=== PATIENT | female | born 1955 | race Caucasian/White ===

== ENCOUNTER → 2016-09-25 | Outpatient (CLI) | payer OTHER ==
[2016-09-25 12:19] LABS: ALBUMIN 3.6 GM/DL (3.2-5.2); ALKALINE PHOSPHATASE 77 U/L (45-117); ALT/SGPT 26 U/L (12-78); ANION GAP 10 MEQ/L (8-16); AST/SGOT 17 U/L (15-37); BILIRUBIN,TOTAL 0.4 MG/DL (0.2-1.0); BLOOD UREA NITROGEN 16 MG/DL (7-18); CALCIUM LEVEL 9.2 MG/DL (8.5-10.1); CARBON DIOXIDE LEVEL 28 MEQ/L (21-32); CHLORIDE LEVEL 104 MEQ/L (98-107); CHOLESTEROL LEVEL 193 MG/DL (<200); GLOMERULAR FILTRATION RATE > 60.0 (>51); GLUCOSE, FASTING 88 MG/DL (70-105); MAGNESIUM LEVEL 1.8 MG/DL (1.8-2.4); POTASSIUM SERUM 3.4 MEQ/L (3.5-5.1); SODIUM LEVEL 142 MEQ/L (136-145); TOTAL PROTEIN 6.6 GM/DL (6.4-8.2); TRIGLYCERIDES LEVEL 148 MG/DL (<150)
[2016-09-25 13:06] LABS: BASO # 0.1 K/mm3 (0.0-0.2); BASO % 1.4 % (0.0-1.0); EOS # 0.1 K/mm3 (0.0-0.50); EOS % 2.4 % (0.0-3.0); LARGE UNSTAINED CELL # 0.1 K/mm3 (0.0-0.4); LARGE UNSTAINED CELL % 2.2 % (0.0-4.0); LYMPH # 1.9 K/mm3 (1.5-4.5); MEAN CORPUSCULAR HEMOGLOBIN 26.9 pg (27.0-33.0); MEAN CORPUSCULAR HGB CONC 32.5 g/dl (32.0-36.5); MEAN CORPUSCULAR VOLUME 82.9 fl (80.0-96.0); MONO # 0.2 K/mm3 (0.0-0.8); MONO % 4.1 % (0.0-5.0); NEUTROPHILS # 3.2 K/mm3 (1.8-7.7); NEUTROPHILS % 57.9 % (36.0-66.0); PLATELET COUNT, AUTOMATED 236 k/mm3 (150-450); RED CELL DISTRIBUTION WIDTH 14.9 % (11.5-14.5); WHITE BLOOD COUNT 5.6 K/mm3 (4.0-10.0)
== END ==
LOC: M WUC 09:17
PROVIDERS: ATTEND Family Medicine
DX: I10 Essential (primary) hypertension (principal)

== ENCOUNTER → 2017-03-28 | Outpatient (CLI) | payer OTHER ==
--- NOTE | 2017-03-28 10:08 | REPMRS ---
Patient History The patient states she has not had a clinical breast exam in over a year. Patient has history of cancer in the right breast at age 57, had previous chest radiation therapy at age 57, and had previous chemotherapy at age 57. No known family history of cancer. Lumpectomy of the right breast, September 2012. Taking tamoxifen for 4 years. Digital Woman Screen Mammo: March 28, 2017 - Exam #: [id number] Bilateral CC and MLO view(s) were taken. Technologist: Alissa Evans, Technologist Prior study comparison: March 24, 2016, bilateral digital mammo screening bilat, performed at [facility]. March 18, 2015, bilateral digital mammo screening bilat, performed at [facility]. October 15, 2014, right breast ultrasound unilateral limited, performed at [facility]. October 17, 2013, digital mammo diagnostic bilateral, performed at [facility]. FINDINGS: There are scattered fibroglandular densities. There has been no change in the appearance of the mammogram from the prior studies. There is a mild amount of residual fibroglandular tissue which is fairly symmetric. Retroareolar scarring and retraction at the periareolar right breast is unchanged from multiple priors.There is no interval development of dominant mass, architectural distortion, or clustered microcalcification suggestive of malignancy. A skin mole in the UOQ of the R breast is unchanged from priors. There are scattered, small, benign calcifications of doubtful clinical significance. Scattered lymph nodes are seen in the right axilla. ASSESSMENT: BI-RADS/ACR category 2 mammogram. Benign finding(s). Recommendation Routine screening mammogram in 1 year (for women over age 40). This mammogram was interpreted with the aid of an FDA-approved computer-aided dectection system. A. Negative x-ray reports should not delay biopsy if a dominant or clinically suspicious mass is present. B. Four to eight percent of cancers are not identified by mammography. C. Adenosis and dense breast may obscure an underlying neoplasm. Electronically Signed By: Barrett Lopez MD 03/28/17 [id number]
--- NOTE | 2017-03-30 14:55 | DEXA ---
AP SPINE L1 - L4 1.222 0.2 1.4 LT FEMUR TOTAL 1.050 0.3 1.2 RT FEMUR TOTAL 0.876 -1.0 -0.1 TOTAL BODY TOTAL OTHER DUAL FEMUR FRAX* ASSESSMENT Risk factors: Not performed. 10 year probability of fracture Major osteoporotic fracture % Hip fracture % COMMENTS: Normal bone densitometry of the spine. Normal bone densitometry of the left hip. There is low bone density of the right hip based on femoral neck T score -1.7 right. The decreased density of the spine does not represent a significant change since 10/13/2013. The decreased density of the left hip does represent a significant change since 10/13/2013. The decreased density of the right hip does represent a significant change. The density of the spine has decreased 11.3% since the initial exam on 2005. The spine density has decreased 0.3% since the most recent exam on 10/13/2013. The density of the left hip has decreased 12.5% since the initial exam on 2005. The density of the left hip has decreased 3.9% since the most recent exam on . The density of the right hip has decreased 10.9% since the initial exam on 08/28. The density of the right hip has decreased 5.1% since the most recent exam on . FOLLOW-UP: Recommendation for the next bone density exam: 2 years. TAYLOR
== END ==
LOC: M WHC 08:55
PROVIDERS: ATTEND Family Medicine
DX: Z12.31 Encounter for screening mammogram for malignant neoplasm of breast (principal); M89.9 Disorder of bone, unspecified; M94.9 Disorder of cartilage, unspecified

== ENCOUNTER → 2017-05-08 | Outpatient (CLI) | payer OTHER ==
[2017-05-08 18:09] LABS: ALBUMIN 3.6 GM/DL (3.2-5.2); ALBUMIN/GLOBULIN RATIO 0.97 (1.00-1.93); ALKALINE PHOSPHATASE 73 U/L (45-117); ALT/SGPT 19 U/L (12-78); ANION GAP 10 MEQ/L (8-16); AST/SGOT 18 U/L (15-37); BILIRUBIN,TOTAL 0.6 MG/DL (0.2-1.0); BLOOD UREA NITROGEN 11 MG/DL (7-18); CALCIUM LEVEL 9.1 MG/DL (8.5-10.1); CARBON DIOXIDE LEVEL 29 MEQ/L (21-32); CHLORIDE LEVEL 102 MEQ/L (98-107); CREATININE FOR GFR 0.62 MG/DL (0.55-1.02); GLOMERULAR FILTRATION RATE > 60.0 (>51); GLUCOSE, FASTING 61 MG/DL (70-105); SODIUM LEVEL 141 MEQ/L (136-145); TOTAL PROTEIN 7.3 GM/DL (6.4-8.2)
[2017-05-08 18:59] LABS: BASO % 0.5 % (0.0-1.0); EOS # 0.1 K/mm3 (0.0-0.50); EOS % 1.2 % (0.0-3.0); LARGE UNSTAINED CELL # 0.1 K/mm3 (0.0-0.4); LARGE UNSTAINED CELL % 1.3 % (0.0-4.0); LYMPH % 24.3 % (24.0-44.0); MEAN CORPUSCULAR HEMOGLOBIN 27.8 pg (27.0-33.0); MEAN CORPUSCULAR HGB CONC 32.1 g/dl (32.0-36.5); MEAN CORPUSCULAR VOLUME 86.6 fl (80.0-96.0); MONO # 0.5 K/mm3 (0.0-0.8); NEUTROPHILS # 5.1 K/mm3 (1.8-7.7); NEUTROPHILS % 65.6 % (36.0-66.0); PLATELET COUNT, AUTOMATED 243 k/mm3 (150-450); RED CELL DISTRIBUTION WIDTH 14.3 % (11.5-14.5); WHITE BLOOD COUNT 7.7 K/mm3 (4.0-10.0)
== END ==
LOC: M WUC 11:31
PROVIDERS: ATTEND Family Medicine
DX: R53.83 Other fatigue (principal)

== ENCOUNTER 2017-09-25 18:35 | Emergency (ER) | payer OTHER ==
[2017-09-25] MEDS: dexameTHASONE 20 MG/5 ML VIAL (J1100) IV (19:57)
[2017-09-25] MEDS: IPRATROPIUM 0.5MG/ALBUTEROL 2.5MG INH SOL UD 3ML (DUONEB)(J7620) NEB (20:14)
[2017-09-25] MEDS: KETOROLAC 30 MG/ML VIAL (J1885) IV (20:39)
== END 2017-09-25 21:36 | disposition home or self-care (01) ==
LOC: M ED 18:35
DX: J40 Bronchitis, not specified as acute or chronic (principal); M62.830 Muscle spasm of back; J45.909 Unspecified asthma, uncomplicated; I10 Essential (primary) hypertension; K21.9 Gastro-esophageal reflux disease without esophagitis; E78.5 Hyperlipidemia, unspecified; Z79.899 Other long term (current) drug therapy; Z79.82 Long term (current) use of aspirin
CPT/HCPCS: J1100

== ENCOUNTER → 2017-11-15 | Outpatient (CLI) | payer OTHER ==
[2017-11-15 13:47] LABS: CREATININE FOR GFR 0.65 MG/DL (0.55-1.30); GLOMERULAR FILTRATION RATE > 60.0 (>45)
[2017-11-15 13:47] LABS: BLOOD UREA NITROGEN 9 MG/DL (7-18)
== END ==
LOC: M WUC 10:25
DX: C50.111 Malignant neoplasm of central portion of right female breast (principal); Z17.0 Estrogen receptor positive status [ER+]
CPT/HCPCS: 82565

== ENCOUNTER → 2018-04-10 | Outpatient (CLI) | payer OTHER ==
[2018-04-10 14:40] LABS: CHOLESTEROL LEVEL 182 MG/DL (<200); CHOLESTEROL RISK RATIO 2.563 (<5); HDL CHOLESTEROL 71 MG/DL (>40); NON-HDL-C 111 MG/DL; THYROID STIMULATING HORMONE 0.665 uIU/ML (0.358-3.740); TRIGLYCERIDES LEVEL 170 MG/DL (<150)
== END ==
LOC: M WUC 12:44
DX: I10 Essential (primary) hypertension (principal)
CPT/HCPCS: 84443

== ENCOUNTER → 2018-08-06 | Outpatient (CLI) | payer OTHER | LOC: M RAD 08:04 | DX: C50.919 Malignant neoplasm of unspecified site of unspecified female breast (principal); M25.552 Pain in left hip; M25.511 Pain in right shoulder; M25.512 Pain in left shoulder | CPT/HCPCS: 78306 ==

== ENCOUNTER → 2018-09-09 | Outpatient (CLI) | payer OTHER ==
[~2018-09-09] MED LIST: ANAS1TAB2 PO; ASPI81TA85 PO; CHLO125TA; DULO1CAP3; GABA-843 PO; KETO10TAB PO; LISI10TA4; METO1TAB33; OMEP20CA3; ROSU10TA5; VITA50005 PO
[2018-09-09 12:46] LABS: BASO # 0.1 10^3/uL (0.0-0.2); BASO % 0.9 % (0.0-1.0); EOS # 0.2 10^3/uL (0.0-0.50); HEMATOCRIT 42.9 % (36.0-47.0); HEMOGLOBIN 14.1 g/dl (12.0-15.5); LYMPH # 1.9 10^3/uL (1.5-4.5); MEAN CORPUSCULAR HEMOGLOBIN 27.4 pg (27.0-33.0); MEAN CORPUSCULAR HGB CONC 32.9 g/dl (32.0-36.5); MEAN CORPUSCULAR VOLUME 83.3 fl (80.0-96.0); MONO # 0.4 10^3/uL (0.0-0.8); MONO % 7.7 % (0.0-5.0); NEUTROPHILS # 3.2 10^3/uL (1.8-7.7); NEUTROPHILS % 55.1 % (36.0-66.0); PLATELET COUNT, AUTOMATED 261 10^3/uL (150-450); RED BLOOD COUNT 5.15 10^6/uL (4.00-5.40); WHITE BLOOD COUNT 5.8 10^3/uL (4.0-10.0)
[2018-09-09 13:08] LABS: ALBUMIN 3.7 GM/DL (3.2-5.2); ALT/SGPT 22 U/L (12-78); BILIRUBIN,TOTAL 0.4 MG/DL (0.2-1.0); BLOOD UREA NITROGEN 12 MG/DL (7-18); CALCIUM LEVEL 9.4 MG/DL (8.8-10.2); CARBON DIOXIDE LEVEL 31 MEQ/L (21-32); CHLORIDE LEVEL 99 MEQ/L (98-107); CREATININE FOR GFR 0.68 MG/DL (0.55-1.30); GLOMERULAR FILTRATION RATE > 60.0 (>45); GLUCOSE, FASTING 90 MG/DL (70-100); POTASSIUM SERUM 3.6 MEQ/L (3.5-5.1); RHEUMATOID FACTOR QUANT < 10.0 IU/ML (<15.0); SODIUM LEVEL 140 MEQ/L (136-145); TOTAL PROTEIN 6.9 GM/DL (6.4-8.2)
[2018-09-09 13:23] LABS: ERYTHROCYTE SEDIMENTATION RATE 23 mm/hr (0-30)
[2018-09-12 14:54] LABS: ANTINUCLEAR ANTIBODIES DIRECT Negative (Negative); HLA-B27 Negative (.); Lyme Disease IgG/IgM Antibodie <0.91 ISR (0.00-0.90); Lyme Disease IgM Ab Quantitati <0.80 index (0.00-0.79); SJOGREN'S ANTI SS-A <0.2 AI (0.0-0.9); SJOGREN'S ANTI SS-B <0.2 AI (0.0-0.9)
== END ==
LOC: M WUC 10:40
PROVIDERS: ATTEND Family Medicine
DX: M12.9 Arthropathy, unspecified (principal)

== ENCOUNTER → 2018-09-26 | Outpatient (REF) | payer OTHER, MEDICARE | LOC: M SFHCPLAZ 15:59 | PROVIDERS: ATTEND Dermatology | DX: L85.9 Epidermal thickening, unspecified (principal) ==

== ENCOUNTER → 2018-10-09 | Outpatient (CLI) | payer MEDICARE, OTHER ==
--- NOTE | 2018-10-09 13:13 | REP ---
Lumbar spine three views: There are no comparison studies. There is mild scoliosis convex right, possibly positional. Vertebral body heights and alignment are normal. There is degenerative disc disease at every lumbar level. There is no spondylolisthesis. The pedicles and sacroiliac articulations are unremarkable. Impression: Multilevel degenerative disc disease. Mild scoliosis. Electronically Signed by Carlos Villeda MD 10/09/2018 01:06 P
--- NOTE | 2018-10-09 13:15 | REP ---
Right hand four views: There is mild joint space narrowing of the PIP and DIP articulations. Joint spaces are otherwise unremarkable. Mineralization is normal. There are no calcifications. No fracture or dislocation. Impression: DIP and PIP mild joint space narrowing. Left hand four views: There is mild PIP and DIP joint space narrowing. The joint spaces are otherwise unremarkable. Mineralization is normal. There are no calcifications. No fracture or dislocation. Impression: DIP and PIP mild joint space narrowing. Electronically Signed by Carlos Villeda MD 10/09/2018 01:07 P
--- NOTE | 2018-10-09 13:17 | REP ---
Sacroiliac joint series four views: Mineralization is normal. There is no cortical eburnation or erosion. The sacral ala and foramen are unremarkable. Impression: Negative sacroiliac joint series. Electronically Signed by Carlos Villeda MD 10/09/2018 01:08 P
[2018-10-09 13:53] LABS: C REACTIVE PROTEIN QUANTITATIV 1.49 MG/DL (0.00-0.30)
[2018-10-09 14:12] LABS: TOTAL 25(OH) VITAMIN D 48.5 NG/ML (30.0-100.0)
== END ==
LOC: M WUC 11:16
PROVIDERS: ATTEND Internal Medicine Rheumatology
DX: M51.36 Other intervertebral disc degeneration, lumbar region (principal); M41.86 Other forms of scoliosis, lumbar region; M25.50 Pain in unspecified joint; Z85.3 Personal history of malignant neoplasm of breast; Z92.3 Personal history of irradiation; Z92.21 Personal history of antineoplastic chemotherapy

== ENCOUNTER → 2018-10-09 | Outpatient (REF) | payer MEDICARE, OTHER | LOC: CANPREREF → M SFHCPLAZ 10:46 | PROVIDERS: ATTEND Internal Medicine Rheumatology | DX: M19.041 Primary osteoarthritis, right hand (principal); M19.042 Primary osteoarthritis, left hand; M41.86 Other forms of scoliosis, lumbar region; M51.36 Other intervertebral disc degeneration, lumbar region; M25.50 Pain in unspecified joint; Z53.8 Procedure and treatment not carried out for other reasons ==

== ENCOUNTER → 2019-04-21 | Outpatient (CLI) | payer OTHER ==
[~2019-04-21] MED LIST changes: -CHLO125TA; +CHLO125TA PO; -DULO1CAP3; +DULO1CAP6 PO; -METO1TAB33; +METO1TAB33 PO; -OMEP20CA3; +OMEP20CA4 PO; -ROSU10TA5; +ROSU10TA6
--- NOTE | 2019-04-21 11:57 | REPMRS ---
Patient History The patient states she had a clinical breast exam in 02/2019. Patient has history of cancer in the right breast at age 57, had previous chest radiation therapy at age 57, and had previous chemotherapy at age 57. No known family history of cancer. Lumpectomy of the right breast, September 2012. Taking tamoxifen for 6 years 1 month. 3D TOMOSYNTHESIS WAS PERFORMED. Digital Woman Screen Mammo: April 21, 2019 - Exam #: [id number] Bilateral CC and MLO view(s) were taken. Technologist: Phoebe Higuera Technologist Prior study comparison: March 28, 2017, digital woman screen mammo performed at [facility]. March 24, 2016, bilateral digital mammo screening bilat, performed at [facility]. FINDINGS: There are scattered fibroglandular densities. There is a fairly symmetric fibroglandular pattern in both breasts. There has been no interval development of masses, areas of architectural distortion or clusters of microcalcifications typical of malignancy. Assessment: BI-RADS/ACR category 2 mammogram. Benign Findings. Recommendation Routine screening mammogram of both breasts in 1 year (for women over age 40). This mammogram was interpreted with the aid of an FDA-approved computer-aided dectection system. Electronically Signed By: Carlos Royal MD 04/21/19 [id number]
--- NOTE | 2019-04-23 15:42 | DEXA ---
AP SPINE L1 - L4 1.220 0.2 1.5 LT FEMUR TOTAL 1.042 0.3 1.3 LT NECK 0.964 -0.5 0.8 RT FEMUR TOTAL 0.862 -1.2 -0.1 RT NECK 0.803 -1.7 -0.4 TOTAL BODY TOTAL OTHER COMMENTS: Normal bone densitometry of the spine. Normal bone densitometry of the left hip. There is low bone density of the right hip. The decreased density of the spine does not represent a significant change. The decreased density of the left hip does not represent a significant change. The decreased density of the right hip does not represent a significant change. The density of the spine is decreased 11.5% since the initial exam on 08/28/2005. The spine density has decreased 0.2% since the most recent exam on 03/28/2017 The density of the left hip has decreased 13.2% since the initial exam on 08/28/2005. The density of the left hip has decreased 0.8% since the most recent exam on 03/28/2017. The density of the right hip has decreased 12.3% since the initial exam on 08/28/2005. The density of the right hip has decreased 1.6% since the most recent exam on 03/28/2017. FOLLOW-UP: Recommendation for the next bone density exam: 2 years. TAYLOR
== END ==
LOC: M WHC 09:58
PROVIDERS: ATTEND Internal Medicine Hematology & Oncology
DX: Z12.31 Encounter for screening mammogram for malignant neoplasm of breast (principal); M81.0 Age-related osteoporosis without current pathological fracture; Z85.3 Personal history of malignant neoplasm of breast; Z92.21 Personal history of antineoplastic chemotherapy

== ENCOUNTER 2019-10-21 10:23 | Observation (INO) | payer OTHER ==
[~2019-10-21] VITALS: Ht 157.5 cm; Wt 88.6 kg
[~2019-10-21 10:23] MED LIST changes: +OMEP1CAP73 PO; -OMEP20CA4 PO
[2019-10-21] MEDS ORDERED: MELO15TA28 PO (10:53)
[2019-10-21] MEDS ORDERED: LOSA25TA14 PO (10:53)
--- NOTE | 2019-10-21 10:53 | REP ---
Portable chest, 10:34 a.m., single AP view with the patient semi upright: Comparison is 09/25/2017. The lung foster are clear. The cardiac size is normal. The sierra, mediastinum, and skeletal structures are unremarkable. Impression: Negative portable chest. There is no interval change. Electronically Signed by Carlos Villeda MD 10/21/2019 10:45 A
[2019-10-21 10:59] LABS: BASO % 0.3 % (0.0-1.0); EOS # 0.1 10^3/uL (0.0-0.5); EOS % 1.3 % (0.0-3.0); HEMATOCRIT 43.9 % (36.0-47.0); HEMOGLOBIN 14.4 g/dl (12.0-15.5); LYMPH % 14.9 % (24.0-44.0); MEAN CORPUSCULAR HEMOGLOBIN 27.1 pg (27.0-33.0); MEAN CORPUSCULAR HGB CONC 32.8 g/dl (32.0-36.5); MEAN CORPUSCULAR VOLUME 82.5 fl (80.0-96.0); MONO # 0.4 10^3/uL (0.0-0.8); MONO % 6.4 % (0.0-5.0); NEUTROPHILS # 4.9 10^3/uL (1.5-8.5); NEUTROPHILS % 76.8 % (36.0-66.0); PLATELET COUNT, AUTOMATED 255 10^3/uL (150-450); RED BLOOD COUNT 5.32 10^6/uL (4.00-5.40); WHITE BLOOD COUNT 6.4 10^3/uL (4.0-10.0)
[2019-10-21] MEDS ORDERED: IPRATROPIUM 0.5MG/ALBUTEROL 2.5MG INH SOL UD 3ML (DUONEB)(J7620) NEB ONE (11:00)
[2019-10-21] MEDS ORDERED: ACETAMINOPHEN TAB 650MG DOSE (2X325MG) PO ONE (11:00)
[2019-10-21 11:41] LABS: BLOOD UREA NITROGEN 7 MG/DL (7-18); CALCIUM LEVEL 9.1 MG/DL (8.8-10.2); CARBON DIOXIDE LEVEL 26 MEQ/L (21-32); CHLORIDE LEVEL 105 MEQ/L (98-107); CK-MB VALUE MASS < 1.0 NG/ML (<3.6); CPK CREATINE PHOSPHOKINASE 92 U/L (26-192); CREATININE FOR GFR 0.82 MG/DL (0.55-1.30); GLOMERULAR FILTRATION RATE > 60.0 (>45); GLUCOSE, FASTING 109 MG/DL (70-100); MB/CK RELATIVE INDEX 1.09 (< OR =4); SODIUM LEVEL 137 MEQ/L (136-145); TROPONIN I < 0.02 NG/ML (< 0.10)
[2019-10-21 11:48] LABS: INFLUENZA A AMPLIFICATION NEGATIVE (NEGATIVE); INFLUENZA B AMPLIFICATION POSITIVE (NEGATIVE)
[2019-10-21] MEDS ORDERED: OSELTAMIVIR PHOSPHATE 75 MG CAP (TAMIFLU) PO ONE (12:00)
[2019-10-21] MEDS ORDERED: IBUPROFEN 600 MG TAB PO ONE (12:30)
[2019-10-21 13:20] VITALS: O2SAT 88
[2019-10-21] MEDS ORDERED: ANAS1TAB2 PO (14:24)
[2019-10-21] MEDS ORDERED: VITA50005 PO (14:24)
[2019-10-21] MEDS ORDERED: [UNRECOGNIZED DRUG - CODE] SL (14:26)
--- NOTE | 2019-10-21 15:23 | HPEPDOC ---
[facility] Medical History & Physical Date of Admission Oct 21, 2019 Date of Service: Oct 21, 2019 Attending Physician: ALBERTINA WANG MD History and Physical CHIEF COMPLAINT: Cough, myalgia/arthralgia HISTORY OF PRESENT ILLNESS: 64-year-old female with past medical history of breast cancer, status post chemoradiation, hypertension and hyperlipidemia presents from home with cough and malaise for the past 1 day. Patient was feeling well up until yesterday when she started experiencing shortness of breath with dry cough followed by generalized malaise, fatigue, arthralgia or myalgia, vomiting and diarrhea. Patient was febrile to 102 in the ED, flu swab was positive for influenza B. Patient was hypoxemic in the emergency department requiring supplemental oxygen, for which she will be admitted for observation. Patient is otherwise comfortable, denies any chest pain, abdominal pain or headache at this time. 10 point review of system is negative except for above PAST MEDICAL HISTORY: 1. Breast cancer. 2. Hypertension. 3. Hyperlipidemia. PAST SURGICAL HISTORY: 1. 2. 2. Hysterectomy. SOCIAL HISTORY: Never smoker Social alcohol use. Denies drug use FAMILY HISTORY: Father had congestive heart failure ALLERGIES: Please see below. HOME MEDICATIONS: Please see below. PHYSICAL EXAMINATION: VITAL SIGNS: Please see below. GENERAL: No distress HEENT: Normocephalic, atraumatic, moist mucous membranes NECK: Supple CARDIOVASCULAR EXAMINATION: S1, S2, no murmurs RESPIRATORY EXAMINATION: Minimal wheezing and rhonchi ABDOMINAL EXAMINATION: Soft, nontender, nondistended, positive bowel sounds EXTREMITIES: Range of motion intact SKIN: No rash NEUROLOGICAL EXAMINATION: Alert and oriented 3, no focal deficits PSYCHIATRIC EXAMINATION: Calm and cooperative LABORATORY DATA: See below. IMAGING: Chest x-ray without acute pathology MICROBIOLOGY: Please see below. ASSESSMENT: 64-year-old female with past medical history of breast cancer, status post chemoradiation, hypertension, hyperlipidemia is admitted for hypoxemia secondary to influenza B infection. PLAN: 1. Influenza B. Patient hypoxemic, requiring supplemental oxygen, supportive care, will be admitted for observation, tentatively plan for discharge tomorrow if no longer requiring supplemental oxygen. Tamiflu 75 mg twice a day 2. Hypertension. Continue losartan and metoprolol 3. GERD. Continue omeprazole 4. Breast cancer. History of chemoradiation, continue anastrozole DVT per flexes: Lovenox. GI prophylaxis: Home PPI Vital Signs Vital Signs Date Time Temp Pulse Resp B/P (MAP) Pulse Ox O2 Delivery O2 Flow Rate FiO2 10/21/19 14:45 81 148/71 (96) 88 Room Air 10/21/19 14:15 100.7 10/21/19 12:45 3.0 10/21/19 11:45 18 Laboratory Data Labs 24H Laboratory Tests 2 10/21/19 10:33: Influenza Type A (RT-PCR) NEGATIVE, Influenza Type B (RT-PCR) POSITIVEH 10/21/19 10:46: Immature Granulocyte % (Auto) 0.3, Neutrophils (%) (Auto) 76.8H, Lymphocytes (%) (Auto) 14.9L, Monocytes (%) (Auto) 6.4H, Eosinophils (%) (Auto) 1.3, Basophils (%) (Auto) 0.3, Neutrophils # (Auto) 4.9, Lymphocytes # (Auto) 1.0L, Monocytes # (Auto) 0.4, Eosinophils # (Auto) 0.1, Basophils # (Auto) 0.0, Nucleated Red Blood Cells % (auto) 0.0, Anion Gap 6L, Glomerular Filtration Rate > 60.0, Calcium Level 9.1, Total Creatine Kinase 92, Creatine Kinase MB < 1.0, Creatine Kinase MB Relative Index 1.09, Troponin I < 0.02 CBC/BMP Laboratory Tests 10/21/19 10:46 Home Medications Scheduled Anastrozole (Anastrozole) 1 Mg Tablet, 1 MG PO DAILY Aspirin (Aspir 81) 81 Mg Tab, 81 MG PO DAILY Cyanocobalamin (Vitamin B-12) (B-12) 3,000 Mcg/1 Ml Drops, 3,000 MCG SL DAILY Duloxetine Hcl (Duloxetine HCl) 60 Mg Cap, 60 MG PO DAILY Ergocalciferol (Vitamin D2) (Vitamin D2) 50,000 Units Cap, 50,000 UNITS PO QWEEK sunday Losartan Potassium (Losartan Potassium) 25 Mg Tablet, 25 MG PO DAILY Metoprolol Succinate (Metoprolol Succinate) 100 Mg Tab, 100 MG PO DAILY Omeprazole (Omeprazole) 20 Mg Cap, 20 MG PO DAILY Allergies Coded Allergies: No Known Allergies (Verified , 09/12/05) A-FIB/CHADSVASC A-FIB History Current/History of A-Fib/PAF?: No ALBERTINA WANG MD Oct 21, 2019 15:23
[2019-10-21] MEDS: OMEPRAZOLE 20 MG CAP PO SCH (15:42)
[2019-10-21] MEDS: NS 1,000 ML IV SCH (15:42)
[2019-10-21] MEDS: LOSARTAN 25 MG TAB PO SCH (15:42)
[2019-10-21] MEDS: DULoxetine 30 MG CAP (CYMBALTA) PO SCH (15:42)
[2019-10-21] MEDS: ASPIRIN 81 MG ENTERIC TAB PO SCH (15:42)
[2019-10-21] MEDS: METOPROLOL SUCC (TopROL XL) 100MG *XL* TAB PO SCH (15:44)
[2019-10-21 16:55] VITALS: BP 146/86
[2019-10-21] MEDS: ACETAMINOPHEN TAB 650MG DOSE (2X325MG) PO PRN ×2 (17:10→21:14)
[2019-10-21] MEDS: ANASTRAZOLE 1 MG PO SCH (20:10)
[2019-10-21] MEDS: OSELTAMIVIR PHOSPHATE 75 MG CAP (TAMIFLU) PO SCH (20:10)
[2019-10-21] MEDS ORDERED: ENOXAPARIN 40 MG/0.4 ML SYRINGE (J1650) SC SCH (21:00)
[2019-10-21 22:00] VITALS: BP 140/78
[2019-10-22] MEDS ORDERED: UNRESOLVED PATIENT OWN MED ORDER XX SCH (00:01)
[2019-10-22] MEDS: NS 1,000 ML IV SCH (01:50)
[2019-10-22] MEDS: ACETAMINOPHEN TAB 650MG DOSE (2X325MG) PO PRN ×2 (01:50→12:33)
[2019-10-22] MEDS ORDERED: IBUPROFEN 400 MG TAB PO PRN (05:30)
[2019-10-22 06:00] VITALS: BP 137/80
[2019-10-22 06:42] LABS: HEMATOCRIT 39.4 % (36.0-47.0); MEAN CORPUSCULAR HEMOGLOBIN 26.9 pg (27.0-33.0); MEAN CORPUSCULAR HGB CONC 31.5 g/dl (32.0-36.5); MEAN CORPUSCULAR VOLUME 85.5 fl (80.0-96.0); PLATELET COUNT, AUTOMATED 175 10^3/uL (150-450); RED BLOOD COUNT 4.61 10^6/uL (4.00-5.40); WHITE BLOOD COUNT 4.1 10^3/uL (4.0-10.0)
[2019-10-22 06:45] LABS: HEMOGLOBIN 12.4 g/dl (12.0-15.5)
[2019-10-22 06:48] LABS: ALBUMIN 2.9 GM/DL (3.2-5.2); ALT/SGPT 16 U/L (12-78); BILIRUBIN,TOTAL 0.3 MG/DL (0.2-1.0); BLOOD UREA NITROGEN 9 MG/DL (7-18); CALCIUM LEVEL 8.3 MG/DL (8.8-10.2); CARBON DIOXIDE LEVEL 26 MEQ/L (21-32); CHLORIDE LEVEL 106 MEQ/L (98-107); CREATININE FOR GFR 0.76 MG/DL (0.55-1.30); GLOMERULAR FILTRATION RATE > 60.0 (>45); GLUCOSE, FASTING 103 MG/DL (70-100); MAGNESIUM LEVEL 1.6 MG/DL (1.8-2.4); SODIUM LEVEL 136 MEQ/L (136-145); TOTAL PROTEIN 6.2 GM/DL (6.4-8.2)
--- NOTE | 2019-10-22 07:55 | ECGEPIP ---
[facility] - ED Test Date: 2019-10-21 Pat Name: RANDY WALSH Department: Room: - Gender: Female Copy Lathe Tender: mode : 1955 Requested By: Ayan Toure Order Number: [id number] Reading MD: Ayan García Measurements Intervals [place] Rate: 98 P: 38 ID: [id number] QRS: -64 QRSD: 68 T: -20 QT: 337 QTc: 432 Interpretive Statements SINUS RHYTHM POSSIBLE LEFT ATRIAL ENLARGEMENT PATTERN CONSISTENT WITH PULMONARY DISEASE LEFT ANTERIOR FASCICULAR BLOCK SIMILAR TO 09/25/17 Electronically Signed on 10-22-2019 7:54:52 EST by Ayan García
[2019-10-22] MEDS: METOPROLOL SUCC (TopROL XL) 100MG *XL* TAB PO SCH (08:52)
[2019-10-22] MEDS: ASPIRIN 81 MG ENTERIC TAB PO SCH (08:52)
[2019-10-22] MEDS: OSELTAMIVIR PHOSPHATE 75 MG CAP (TAMIFLU) PO SCH (08:53)
[2019-10-22] MEDS: OMEPRAZOLE 20 MG CAP PO SCH (08:53)
[2019-10-22] MEDS: DULoxetine 30 MG CAP (CYMBALTA) PO SCH (08:53)
[2019-10-22] MEDS: LOSARTAN 25 MG TAB PO SCH (08:53)
[2019-10-22] MEDS: MAG SULF 1GM/100ML (MAG RUN) 1 GM in IV 1 EA IV SCH ×3 (08:54→11:40)
[2019-10-22] MEDS: ANASTRAZOLE 1 MG PO SCH (08:55)
[2019-10-22] MEDS ORDERED: OSEL75CA2 PO (12:05)
--- NOTE | 2019-10-22 13:11 | DS.PDOC ---
Discharge Summary General Date of Admission Oct 21, 2019 at 10:24 Date of Discharge 10/22/19 Attending Physician: ALBERTINA WANG MD Discharge Summary PROCEDURES PERFORMED DURING STAY: None. ADMITTING DIAGNOSES: 1. Influenza, hypoxemia. DISCHARGE DIAGNOSES: 1. Influenza, hypoxemia. COMPLICATIONS/CHIEF COMPLAINT: Influenza B. HISTORY OF PRESENT ILLNESS: 64-year-old female with past medical history of breast cancer, hypertension, hyperlipidemia, was admitted yesterday for inf luenza with hypoxemia. The patient require supplemental oxygen overnight along with supportive care, saturating well in the morning. Patient ambulated well without requiring any supplemental oxygen and without significant drop in O2 saturation, remained asymptomatic. Patient encouraged to remain well-hydrated and take Tylenol as needed for fever and pain. Patient is agreeable with current discharge planning, clinically and hemodynamically stable for discharge and outpatient follow-up. HOSPITAL COURSE: As above. DISCHARGE MEDICATIONS: Please see below. ALLERGIES: Please see below. PHYSICAL EXAMINATION: VITAL SIGNS: Please see below. GENERAL: No distress HEENT: Normocephalic, atraumatic, moist mucous membranes NECK: Supple CARDIOVASCULAR EXAMINATION: S1, S2, no murmurs RESPIRATORY EXAMINATION: Scattered rhonchi ABDOMINAL EXAMINATION: Soft, nontender, nondistended, positive bowel sounds EXTREMITIES: Range of motion intact SKIN: No rash NEUROLOGICAL EXAMINATION: Alert and oriented 3, no focal deficits PSYCHIATRIC EXAMINATION: Calm and cooperative LABORATORY DATA: Please see below. IMAGING: Chest x-ray without acute pathology PROGNOSIS: Fair ACTIVITY: As tolerated. DIET: Cardiac DISCHARGE PLAN: Follow with PCP in 1-2 weeks DISPOSITION: Home. DISCHARGE INSTRUCTIONS: 1. As above. DISCHARGE CONDITION: Stable. TIME SPENT ON DISCHARGE: Greater than 26 minutes. Vital Signs/I&Os Vital Signs Date Time Temp Pulse Resp B/P (MAP) Pulse Ox O2 Delivery O2 Flow Rate FiO2 10/22/19 12:35 101.0 10/22/19 06:00 81 18 137/80 (99) 94 Nasal Cannula 3.0 I&O- Last 24 Hours up to 6 AM 10/22/19 06:00 Intake Total 550 ml Output Total 0 ml Balance 550 ml Laboratory Data Labs 24H Laboratory Tests 2 10/22/19 05:56: Nucleated Red Blood Cells % (auto) 0.0, Anion Gap 4L, Glomerular Filtration Rate > 60.0, Calcium Level 8.3L, Magnesium Level 1.6L, Total Bilirubin 0.3, Aspartate Amino Transf (AST/SGOT) 21, Alanine Aminotransferase (ALT/SGPT) 16, Alkaline Phosphatase 64, Total Protein 6.2L, Albumin 2.9L, Albumin/Globulin Ratio 0.88L CBC/BMP Laboratory Tests 10/22/19 05:56 Microbiology Microbiology 10/21/19 Blood Culture, Received Pending 10/21/19 Blood Culture, Received Pending Discharge Medications Scheduled Anastrozole (Anastrozole) 1 Mg Tablet, 1 MG PO DAILY, (Reported) Aspirin (Aspir 81) 81 Mg Tab, 81 MG PO DAILY, (Reported) Cyanocobalamin (Vitamin B-12) (B-12) 3,000 Mcg/1 Ml Drops, 3,000 MCG SL DAILY, (Reported) Duloxetine Hcl (Duloxetine HCl) 60 Mg Cap, 60 MG PO DAILY, (Reported) Ergocalciferol (Vitamin D2) (Vitamin D2) 50,000 Units Cap, 50,000 UNITS PO QWEEK, (Reported) sunday Losartan Potassium (Losartan Potassium) 25 Mg Tablet, 25 MG PO DAILY, (Reported) Metoprolol Succinate (Metoprolol Succinate) 100 Mg Tab, 100 MG PO DAILY, (Reported) Omeprazole (Omeprazole) 20 Mg Cap, 20 MG PO DAILY, (Reported) Oseltamivir Phosphate (Oseltamivir Phosphate) 75 Mg Capsule, 75 MG PO BID Allergies Coded Allergies: No Known Allergies (Verified , 09/12/05) ALBERTINA WANG MD Oct 22, 2019 13:11
== END 2019-10-22 13:38 | disposition home or self-care (01) ==
LOC: M ED 10:23 → M ED INP 10:24 → ENRESERV 15:28 → M MSPAV 16:47
PROVIDERS: ADMIT Internal Medicine; ATTEND Internal Medicine
DX: J10.1 Influenza due to other identified influenza virus with other respiratory manifestations (principal); R09.02 Hypoxemia; I10 Essential (primary) hypertension; E78.49 Other hyperlipidemia; K21.9 Gastro-esophageal reflux disease without esophagitis; Z79.899 Other long term (current) drug therapy; Z79.82 Long term (current) use of aspirin; Z85.3 Personal history of malignant neoplasm of breast; Z92.21 Personal history of antineoplastic chemotherapy; Z92.3 Personal history of irradiation
CPT/HCPCS: 36415; 71045; 80048; 80053; 82550; 82553; 83735; 84484; 85025; 85027; 87040; 87502; 93005; 93041; 94640; 94760; 96360; 96361; 96372; 97161; 99285; J1650; J3475

== ENCOUNTER → 2020-03-18 | Outpatient (CLI) | payer OTHER ==
[~2020-03-18] MED LIST changes: -ASPI81TA85 PO; +ASPI81TA86 PO; +LOSA25TA14 PO; +MELO15TA28 PO; +OSEL75CA2 PO; +[UNRECOGNIZED DRUG - CODE] SL
== END ==
LOC: M LABSMTC 10:29
PROVIDERS: ATTEND Anesthesiology
DX: Z20.828 Contact with and (suspected) exposure to other viral communicable diseases (principal); Z11.59 Encounter for screening for other viral diseases

== ENCOUNTER 2020-03-23 13:08 | Day surgery (SDC) | payer OTHER ==
[~2020-03-23 13:08] MED LIST changes: +LIDOCAINE 2% 100MG/5ML SDV (FOR ANES.) As Ordered ONE; +fentaNYL 100 MCG/2 ML INJECTION (J3010) As Ordered ONE; +propofoL 200 MG/20 ML VIAL As Ordered ONE
[2020-03-23] MEDS ORDERED: propofoL 200 MG/20 ML VIAL As Ordered ONE (13:51)
[2020-03-23] MEDS ORDERED: propofoL 200 MG/20 ML VIAL ONE (13:51)
== END 2020-03-23 14:50 | disposition home or self-care (01) ==
LOC: M OPP 13:08
PROVIDERS: ATTEND Surgery
DX: D12.2 Benign neoplasm of ascending colon (principal); K57.90 Diverticulosis of intestine, part unspecified, without perforation or abscess without bleeding; K21.9 Gastro-esophageal reflux disease without esophagitis; Z85.3 Personal history of malignant neoplasm of breast; F41.9 Anxiety disorder, unspecified; F32.9 Major depressive disorder, single episode, unspecified; Z88.1 Allergy status to other antibiotic agents; Z92.3 Personal history of irradiation; Z79.899 Other long term (current) drug therapy; Z92.21 Personal history of antineoplastic chemotherapy
CPT/HCPCS: 45385; 88305; J3010

== ENCOUNTER → 2020-09-15 | Outpatient (CLI) | payer OTHER ==
[~2020-09-15] MED LIST changes: +GABA-282 PO; -GABA-843 PO; -LIDOCAINE 2% 100MG/5ML SDV (FOR ANES.) As Ordered ONE; +LISI10TA22; -LISI10TA4; -fentaNYL 100 MCG/2 ML INJECTION (J3010) As Ordered ONE; -propofoL 200 MG/20 ML VIAL As Ordered ONE
[2020-09-15 16:56] LABS: ALBUMIN 3.6 GM/DL (3.2-5.2); ALT/SGPT 17 U/L (12-78); BILIRUBIN,TOTAL 0.5 MG/DL (0.2-1.0); BLOOD UREA NITROGEN 12 MG/DL (7-18); CALCIUM LEVEL 9.6 MG/DL (8.8-10.2); CARBON DIOXIDE LEVEL 29 MEQ/L (21-32); CHLORIDE LEVEL 105 MEQ/L (98-107); CHOLESTEROL LEVEL 264 MG/DL (<200); CHOLESTEROL RISK RATIO 3.826 (<5); CREATININE FOR GFR 0.74 MG/DL (0.55-1.30); GLOMERULAR FILTRATION RATE > 60.0 (>45); GLUCOSE, FASTING 78 MG/DL (70-100); HDL CHOLESTEROL 69 MG/DL (>40); LDL CHOLESTEROL 175 MG/DL (<100); NON-HDL-C 195 MG/DL; POTASSIUM SERUM 4.5 MEQ/L (3.5-5.1); SODIUM LEVEL 140 MEQ/L (136-145); TOTAL PROTEIN 6.8 GM/DL (6.4-8.2); TRIGLYCERIDES LEVEL 98 MG/DL (<150)
== END ==
LOC: M WUC 12:05
PROVIDERS: ATTEND Nurse Practitioner Family
DX: E78.5 Hyperlipidemia, unspecified (principal); I10 Essential (primary) hypertension

== ENCOUNTER → 2020-09-21 | Outpatient (CLI) | payer OTHER ==
[2020-09-21 16:51] LABS: FREE T4 1.11 NG/DL (0.76-1.46); THYROID STIMULATING HORMONE 1.15 uIU/ML (0.358-3.740)
== END ==
LOC: M WUC 10:54
PROVIDERS: ATTEND Nurse Practitioner Family
DX: E78.5 Hyperlipidemia, unspecified (principal)

== ENCOUNTER → 2022-09-06 | Outpatient (CLI) | payer MEDICARE, OTHER ==
[~2022-09-06] MED LIST changes: +ERGO500029 PO; +LOSA25TA13 PO; -LOSA25TA14 PO
[2022-09-06 10:29] LABS: BASO # 0.1 10^3/uL (0.0-0.2); BASO % 0.9 % (0.0-1.0); EOS # 0.2 10^3/uL (0.0-0.5); EOS % 3.8 % (0.0-3.0); HEMATOCRIT 44.2 % (36.0-47.0); LYMPH # 2.4 10^3/uL (1.5-5.0); LYMPH % 42.4 % (24.0-44.0); MEAN CORPUSCULAR HGB CONC 31.7 g/dl (32.0-36.5); MEAN CORPUSCULAR VOLUME 85.3 fl (80.0-96.0); MONO # 0.5 10^3/uL (0.0-0.8); MONO % 8.2 % (2.0-8.0); NEUTROPHILS # 2.5 10^3/uL (1.5-8.5); NEUTROPHILS % 44.5 % (36.0-66.0); PLATELET COUNT, AUTOMATED 273 10^3/uL (150-450); RED BLOOD COUNT 5.18 10^6/uL (4.00-5.40); WHITE BLOOD COUNT 5.6 10^3/uL (4.0-10.0)
[2022-09-06 11:06] LABS: TOTAL 25(OH) VITAMIN D 96.4 NG/ML (20.0-100.0)
[2022-09-06 11:09] LABS: ALBUMIN 3.7 G/DL (3.2-5.2); ALKALINE PHOSPHATASE 65 U/L (46-116); ALT/SGPT 15 U/L (7.0-40); AST/SGOT 16 U/L (<34); BILIRUBIN,TOTAL 0.6 MG/DL (0.3-1.2); BLOOD UREA NITROGEN 8 MG/DL (9-23); CALCIUM LEVEL 9.4 MG/DL (8.3-10.6); CARBON DIOXIDE LEVEL 30 MMOL/L (20-31); CHLORIDE LEVEL 107 MMOL/L (98-107); CHOLESTEROL LEVEL 260 MG/DL (<200); CREATININE FOR GFR 0.73 MG/DL (0.55-1.30); GLOMERULAR FILTRATION RATE > 60.0 (>45); GLUCOSE, FASTING 74 MG/DL (74-106); HDL CHOLESTEROL 64.9 MG/DL (>40); LDL CHOLESTEROL 158.1 MG/DL (<100); NON-HDL-C 195 MG/DL; SODIUM LEVEL 143 MMOL/L (136-145); TOTAL PROTEIN 6.5 G/DL (5.7-8.2); TRIGLYCERIDES LEVEL 185 MG/DL (<150)
== END ==
LOC: M WUC 08:30
PROVIDERS: ATTEND Family Medicine
DX: I10 Essential (primary) hypertension (principal); E55.9 Vitamin D deficiency, unspecified; Z79.899 Other long term (current) drug therapy

== ENCOUNTER → 2022-09-06 | Outpatient (CLI) | payer MEDICARE, OTHER | LOC: M WHC 07:30 | PROVIDERS: ATTEND Family Medicine | DX: Z12.31 Encounter for screening mammogram for malignant neoplasm of breast (principal); Z85.3 Personal history of malignant neoplasm of breast; M89.9 Disorder of bone, unspecified ==

== ENCOUNTER → 2022-09-21 | Outpatient (CLI) | payer MEDICARE, OTHER | LOC: M SOG 08:18 | PROVIDERS: ATTEND Orthopaedic Surgery | DX: M25.552 Pain in left hip (principal); M65.28 Calcific tendinitis, other site ==

== ENCOUNTER → 2022-09-27 | Outpatient (CLI) | payer MEDICARE, OTHER | LOC: M SOG 08:03 | PROVIDERS: ATTEND Orthopaedic Surgery | DX: M25.531 Pain in right wrist (principal) ==

== ENCOUNTER → 2022-11-16 | Outpatient (CLI) | payer MEDICARE, OTHER | LOC: M PLAIMG 07:29 | PROVIDERS: ATTEND Orthopaedic Surgery | DX: M65.4 Radial styloid tenosynovitis [de Quervain] (principal) ==

== ENCOUNTER → 2023-02-28 | Outpatient (CLI) | payer MEDICARE, OTHER ==
[2023-02-28 12:23] LABS: ALBUMIN 3.5 G/DL (3.2-5.2); ALKALINE PHOSPHATASE 55 U/L (46-116); ALT/SGPT < 9 U/L (7.0-40); AST/SGOT < 8 U/L (<34); BILIRUBIN,TOTAL 0.5 MG/DL (0.3-1.2); BLOOD UREA NITROGEN 13 MG/DL (9-23); CALCIUM LEVEL 9.4 MG/DL (8.3-10.6); CARBON DIOXIDE LEVEL 26 MMOL/L (20-31); CHLORIDE LEVEL 108 MMOL/L (98-107); CHOLESTEROL LEVEL 232 MG/DL (<200); CHOLESTEROL RISK RATIO 2.84 (<5); CREATININE FOR GFR 0.66 MG/DL (0.55-1.30); GLOMERULAR FILTRATION RATE > 60.0 (>45); GLUCOSE, FASTING 97 MG/DL (74-106); HDL CHOLESTEROL 81.6 MG/DL (>40); LDL CHOLESTEROL 132.2 MG/DL (<100); NON-HDL-C 150.4 MG/DL; SODIUM LEVEL 143 MMOL/L (136-145); TOTAL PROTEIN 6.3 G/DL (5.7-8.2); TRIGLYCERIDES LEVEL 91 MG/DL (<150)
== END ==
LOC: M WUC 08:44
PROVIDERS: ATTEND Registered Nurse
DX: E78.5 Hyperlipidemia, unspecified (principal)

== ENCOUNTER → 2023-07-17 | Outpatient (REF) | payer MEDICARE, OTHER ==
[2023-07-17 16:09] LABS: BLOOD UREA NITROGEN 11 MG/DL (9-23); CALCIUM LEVEL 9.2 MG/DL (8.3-10.6); CARBON DIOXIDE LEVEL 28 MMOL/L (20-31); CHLORIDE LEVEL 104 MMOL/L (98-107); CREATININE FOR GFR 0.73 MG/DL (0.55-1.30); GLOMERULAR FILTRATION RATE > 60.0 (>45); GLUCOSE, FASTING 85 MG/DL (74-106); SODIUM LEVEL 139 MMOL/L (136-145)
== END ==
LOC: M LABWUC 15:16
PROVIDERS: ATTEND Family Medicine
DX: I10 Essential (primary) hypertension (principal)

== ENCOUNTER → 2023-12-18 | Outpatient (CLI) | payer MEDICARE, OTHER | LOC: M WHC 10:37 | PROVIDERS: ATTEND Family Medicine | DX: Z12.31 Encounter for screening mammogram for malignant neoplasm of breast (principal) ==

== ENCOUNTER → 2024-05-09 | Outpatient (CLI) | payer MEDICARE, OTHER ==
[~2024-05-09] MED LIST changes: -ROSU10TA6; +ROSU10TA61
[2024-05-09 18:37] LABS: ALBUMIN 3.6 G/DL (3.2-5.2); ALKALINE PHOSPHATASE 55 U/L (46-116); ALT/SGPT 12 U/L (7.0-40); AST/SGOT 8 U/L (<34); BILIRUBIN,TOTAL 0.4 MG/DL (0.3-1.2); BLOOD UREA NITROGEN 13 MG/DL (9-23); CALCIUM LEVEL 9.9 MG/DL (8.3-10.6); CARBON DIOXIDE LEVEL 27 MMOL/L (20-31); CHLORIDE LEVEL 104 MMOL/L (98-107); CHOLESTEROL LEVEL 270 MG/DL (<200); CHOLESTEROL RISK RATIO 3.64 (<5); CREATININE FOR GFR 0.87 MG/DL (0.55-1.30); GLOMERULAR FILTRATION RATE > 60.0 (>45); GLUCOSE, FASTING 69 MG/DL (74-106); HDL CHOLESTEROL 74.1 MG/DL (>40); LDL CHOLESTEROL 168.1 MG/DL (<100); NON-HDL-C 195.9 MG/DL; SODIUM LEVEL 139 MMOL/L (136-145); TRIGLYCERIDES LEVEL 139 MG/DL (<150)
[2024-05-09 18:41] LABS: BASO # 0.1 10^3/uL (0.0-0.2); BASO % 0.8 % (0.0-1.0); EOS # 0.1 10^3/uL (0.0-0.5); EOS % 1.9 % (0.0-3.0); HEMATOCRIT 42.7 % (36.0-47.0); HEMOGLOBIN 13.8 g/dl (12.0-15.5); LYMPH # 2.7 10^3/uL (1.5-5.0); LYMPH % 42.8 % (24.0-44.0); MEAN CORPUSCULAR HEMOGLOBIN 28.4 pg (27.0-33.0); MEAN CORPUSCULAR HGB CONC 32.3 g/dl (32.0-36.5); MEAN CORPUSCULAR VOLUME 87.9 fl (80.0-96.0); MONO # 0.5 10^3/uL (0.0-0.8); MONO % 8.2 % (2.0-8.0); NEUTROPHILS # 2.9 10^3/uL (1.5-8.5); NEUTROPHILS % 45.8 % (36.0-66.0); PLATELET COUNT, AUTOMATED 306 10^3/uL (150-450); RED BLOOD COUNT 4.86 10^6/uL (4.00-5.40); WHITE BLOOD COUNT 6.3 10^3/uL (4.0-10.0)
== END ==
LOC: M WUC 13:35
PROVIDERS: ATTEND Family Medicine
DX: I10 Essential (primary) hypertension (principal)

== ENCOUNTER → 2024-12-19 | Outpatient (CLI) | payer MEDICARE, OTHER ==
[~2024-12-19] MED LIST changes: +GABA-1172 PO; -GABA-282 PO
== END ==
LOC: M WHC 08:22
PROVIDERS: ATTEND Family Medicine
DX: Z13.820 Encounter for screening for osteoporosis (principal); Z12.31 Encounter for screening mammogram for malignant neoplasm of breast; R92.313 Mammographic fatty tissue density, bilateral breasts; M85.89 Other specified disorders of bone density and structure, multiple sites

== ENCOUNTER → 2025-05-15 | Outpatient (CLI) | payer MEDICARE, OTHER ==
[2025-05-15 14:05] LABS: BASO # 0.0 10^3/uL (0.0-0.2); BASO % 0.7 % (0.0-1.0); EOS # 0.1 10^3/uL (0.0-0.5); EOS % 2.4 % (0.0-3.0); LYMPH # 1.8 10^3/uL (1.5-5.0); LYMPH % 40.2 % (24.0-44.0); MONO # 0.4 10^3/uL (0.0-0.8); MONO % 8.7 % (2.0-8.0); NEUTROPHILS # 2.1 10^3/uL (1.5-8.5); NEUTROPHILS % 47.6 % (36.0-66.0); PLATELET COUNT, AUTOMATED 294 10^3/uL (150-450)
[2025-05-15 14:08] LABS: ALT/SGPT 11.0 U/L (7.0-40); AST/SGOT 14.0 U/L (<34); CALCIUM LEVEL 9.6 MG/DL (8.3-10.6); CARBON DIOXIDE LEVEL 31.0 MMOL/L (20-31); CHLORIDE LEVEL 105.0 MMOL/L (98-107); CHOLESTEROL LEVEL 236.0 MG/DL (<200); CHOLESTEROL RISK RATIO 2.42 (<5); CREATININE FOR GFR 0.81 MG/DL (0.55-1.30); GLOMERULAR FILTRATION RATE 79.5 (>45); LDL CHOLESTEROL 124.0 MG/DL (<100); NON-HDL-C 138.8 MG/DL; POTASSIUM SERUM 4.2 MMOL/L (3.5-5.1); SODIUM LEVEL 142.0 MMOL/L (136-145); TRIGLYCERIDES LEVEL 74.0 MG/DL (<150)
== END ==
LOC: M WUC 08:36
PROVIDERS: ATTEND Nurse Practitioner Family
DX: E78.2 Mixed hyperlipidemia (principal); I10 Essential (primary) hypertension